=== PATIENT | female | born 1940 | race African-American/Black ===

== ENCOUNTER 2021-04-18 15:32 | Observation (INO) | payer OTHER, MEDICARE ==
[~2021-04-18] VITALS: Ht 162.6 cm; Wt 68.0 kg
[2021-04-18 15:55] LABS: HEMOGLOBIN 11.6 gm/dl (12.3-15.3); RED BLOOD COUNT 4.04 M/UL (4.00-5.10); WHITE BLOOD COUNT 9.4 K/UL (4.5-11.0)
[2021-04-18 17:45] LABS: BUN/CREATININE RATIO 17 (0-10)
[2021-04-19 06:20] LABS: HEMOGLOBIN 10.5 gm/dl (12.3-15.3); RED BLOOD COUNT 3.71 M/UL (4.00-5.10); WHITE BLOOD COUNT 10.4 K/UL (4.5-11.0)
[2021-04-19] MEDS ORDERED: HYDROCODON-ACE1 EAC4 PO (08:34)
[2021-04-19] MEDS ORDERED: CYCLOBENZAPRINE10 MG PO (08:34)
[2021-04-19] MEDS ORDERED: LISINOPRIL40 MG PO (11:27)
[2021-04-19] MEDS ORDERED: HYDROCHLOROTHIA25 MG PO (11:28)
[2021-04-19] MEDS ORDERED: NIFEDIPINE ER60 M1 PO (11:28)
[2021-04-19] MEDS ORDERED: ATENOLOL100 MG PO (11:28)
[2021-04-20 05:28] LABS: RED BLOOD COUNT 3.22 M/UL (4.00-5.10); WHITE BLOOD COUNT 6.9 K/UL (4.5-11.0)
--- NOTE | 2021-04-20 13:05 | NUR ---
PATIENT DISCHARGED AND EXCORTED OUT VIA WHEELCHAIR. PATIENT STABLE AND DISCHARGE INSTRUCTIONS WERE EXPLAINED. THE PATIENT SHOWED UNDERSTANDING IN INSTUCTIONS. PATIENT TAKEN HOME BY HER SON.
[2021-04-20] MEDS ORDERED: HYDROCODON-ACE1 EAC4 PO (18:33)
== END 2021-04-20 13:03 | disposition home or self-care (01) ==
LOC: ER1 15:32 → CDU 20:59 → CCU 20:59
PROVIDERS: Family Medicine; ADMIT Surgery
DX: S22.43XA Multiple fractures of ribs, bilateral, initial encounter for closed fracture (principal); R11.2 Nausea with vomiting, unspecified; I12.9 Hypertensive chronic kidney disease with stage 1 through stage 4 chronic kidney disease, or unspecified chronic kidney disease; N18.9 Chronic kidney disease, unspecified; Z98.890 Other specified postprocedural states; Z79.899 Other long term (current) drug therapy; V47.5XXA Car driver injured in collision with fixed or stationary object in traffic accident, initial encounter; Y92.410 Unspecified street and highway as the place of occurrence of the external cause
CPT/HCPCS: 36415; 70450; 71045; 71250; 72125; 73060; 80048; 80053; 82550; 82553; 83690; 83874; 84484; 85025; 85027; 96374; 96375; 99285; G0378; J2270; J2405